=== PATIENT | male | born 1975 | race African-American/Black ===

== ENCOUNTER 2025-07-23 13:04 | Emergency (ER) | payer OTHER ==
[~2025-07-23] VITALS: Ht 182.9 cm; Wt 101.0 kg
[~2025-07-23 13:04] MED LIST: 12 H0.056 NARES; ASPI81CH8 PO; BISA5TAB15 PO; CLOP75TA2 PO; DICL75TA PO; DOCU100C16 PO; FLON1SPR NARES; LIPI20TA PO; LORA-1041 PO; ONDA-83 PO; PRAZ1CAP PO; ROZE8TAB16 PO; SILD100T PO; TRAZ1TAB10 PO; VALA1TAB5 PO
[2025-07-23 13:07] VITALS: BP 142/74; TEMP 97; O2SAT 100
[2025-07-23] MEDS ORDERED: NAPR-837 PO (13:42)
[2025-07-23] MEDS ORDERED: LIDO1PAD TOP (13:44)
[2025-07-23] MEDS ORDERED: [UNRECOGNIZED DRUG - CODE] XX (13:45)
== END 2025-07-23 13:49 | disposition home or self-care (01) ==
LOC: M ED 13:04
DX: M77.12 Lateral epicondylitis, left elbow (principal); Z86.79 Personal history of other diseases of the circulatory system; Z79.82 Long term (current) use of aspirin; Z79.899 Other long term (current) drug therapy; Z79.02 Long term (current) use of antithrombotics/antiplatelets; Z79.1 Long term (current) use of non-steroidal anti-inflammatories (NSAID)